=== PATIENT | female | born 1970 | race Caucasian/White ===

== ENCOUNTER 2016-08-09 16:06 | Emergency (ER) | payer OTHER | END 2016-08-09 17:46 | disposition home or self-care (01) | LOC: FER 16:06 | DX: J40 Bronchitis, not specified as acute or chronic (principal) | CPT/HCPCS: 71020; 94640; 94664 ==

== ENCOUNTER 2020-03-10 17:45 | Emergency (ER) | payer OTHER ==
[~2020-03-10 17:45] MED LIST: AUGMENTIN 875-1 EACH PO; CLEOCIN300 MG PO; NEOMYC-POLYM-GR10 ML EYELF; SERTRALINE HCL50 MG PO; SPRINTEC 28 DA1 EACH PO
[2020-03-10] MEDS ORDERED: NORCO 5-325 TA1 EACH PO ×2 (19:16→19:21)
== END 2020-03-10 19:30 | disposition home or self-care (01) ==
LOC: FER 17:45
DX: S86.212A Strain of muscle(s) and tendon(s) of anterior muscle group at lower leg level, left leg, initial encounter (principal); W22.8XXA Striking against or struck by other objects, initial encounter; Y92.009 Unspecified place in unspecified non-institutional (private) residence as the place of occurrence of the external cause
CPT/HCPCS: 73564

== ENCOUNTER 2020-06-23 20:05 | Emergency (ER) | payer OTHER ==
[~2020-06-23 20:05] MED LIST changes: +NORCO 5-325 TA1 EACH PO
[2020-06-23] MEDS ORDERED: MEDROL 4MG DOSEP4 MG PO (23:16)
[2020-06-23] MEDS ORDERED: CYCLOBENZAPRINE10 MG PO (23:16)
[2020-06-23] MEDS ORDERED: IBUPROFEN800 MG PO (23:16)
[2020-06-23] MEDS ORDERED: NORCO 5-325 TA1 EACH PO (23:16)
== END 2020-06-23 23:18 | disposition home or self-care (01) ==
LOC: FER 20:05
DX: S40.011A Contusion of right shoulder, initial encounter (principal); S50.11XA Contusion of right forearm, initial encounter; S70.01XA Contusion of right hip, initial encounter; M54.2 Cervicalgia; Z87.891 Personal history of nicotine dependence; W01.10XA Fall on same level from slipping, tripping and stumbling with subsequent striking against unspecified object, initial encounter
CPT/HCPCS: 71045; 72072; 72100; 72125; 72170; 73030; 73060; 73090; 73552; J1100; J1170; J1885; J2405

== ENCOUNTER 2020-10-08 20:33 | Emergency (ER) | payer OTHER ==
[~2020-10-08 20:33] MED LIST changes: +CYCLOBENZAPRINE10 MG PO; +IBUPROFEN800 MG PO; +MEDROL 4MG DOSEP4 MG PO
== END 2020-10-08 23:51 | disposition home or self-care (01) ==
LOC: FER 20:33
DX: S92.515A Nondisplaced fracture of proximal phalanx of left lesser toe(s), initial encounter for closed fracture (principal); W20.8XXA Other cause of strike by thrown, projected or falling object, initial encounter; Y92.009 Unspecified place in unspecified non-institutional (private) residence as the place of occurrence of the external cause
CPT/HCPCS: 73620

== ENCOUNTER 2020-11-17 09:07 | Emergency (ER) | payer OTHER ==
[2020-11-17 09:28] LABS: BILIRUBIN NEGATIVE (NEGATIVE); BLOOD NEGATIVE Ery/uL (NEGATIVE); CLARITY CLEAR (CLEAR); COLOR YELLOW (YELLOW); GLUCOSE (U) NORMAL (NORMAL); LEUKOCYTES 1+ Leu/uL (NEGATIVE); NITRITE NEGATIVE (NEGATIVE); PROTEIN NEGATIVE (NEGATIVE); SPECIFIC GRAVITY 1.015 (1.001-1.030); UROBILINOGEN 0.2 mg/dL (0.2-1.0)
[2020-11-17 09:42] LABS: BACTERIA TRACE
[2020-11-17] MEDS ORDERED: NAPROXEN500 MG PO (10:08)
[2020-11-17] MEDS ORDERED: CYCLOBENZAPRINE10 MG PO (10:08)
== END 2020-11-17 10:20 | disposition home or self-care (01) ==
LOC: FER 09:07
PROVIDERS: Emergency Medicine
DX: M54.50 Low back pain, unspecified (principal); X50.9XXA Other and unspecified overexertion or strenuous movements or postures, initial encounter
CPT/HCPCS: 81001; J1885

== ENCOUNTER 2021-07-15 17:07 | Emergency (ER) | payer OTHER ==
[~2021-07-15 17:07] MED LIST changes: +NAPROXEN500 MG PO
[2021-07-15] MEDS ORDERED: NAPROXEN500 MG PO (19:26)
[2021-07-15] MEDS ORDERED: BACLOFEN 10MG T10 MG PO (19:26)
== END 2021-07-15 19:37 | disposition home or self-care (01) ==
LOC: FER 17:07
DX: M54.50 Low back pain, unspecified (principal); M54.2 Cervicalgia; Z87.891 Personal history of nicotine dependence; V49.40XA Driver injured in collision with unspecified motor vehicles in traffic accident, initial encounter
CPT/HCPCS: 72125; 72131; 96372; J1100; J1885

== ENCOUNTER 2021-10-14 17:25 | Emergency (ER) | payer OTHER ==
[~2021-10-14 17:25] MED LIST changes: +BACLOFEN 10MG T10 MG PO
== END 2021-10-14 21:05 | disposition home or self-care (01) ==
LOC: FER 17:25
DX: M25.532 Pain in left wrist (principal); Z87.891 Personal history of nicotine dependence; X58.XXXA Exposure to other specified factors, initial encounter; Y93.89 Activity, other specified; Y92.009 Unspecified place in unspecified non-institutional (private) residence as the place of occurrence of the external cause
CPT/HCPCS: 73110; J1885